=== PATIENT | female | born 1980 | race Caucasian/White ===

== ENCOUNTER 2020-01-21 10:33 | Observation (INO) | payer OTHER ==
[2020-01-17 14:40] LABS: BASOPHILS % 0.6 % (0.0-1.0); EOSINOPHILS % 0.2 % (0.0-6.0); HEMATOCRIT 34.7 % (34.2-44.1); HEMOGLOBIN 11.3 g/dL (12.0-16.0); LYMPHOCYTES # (AUTO) 1.7 (1.0-3.2); LYMPHOCYTES % 32.5 % (18.0-39.1); MEAN CORPUSCULAR HEMOGLOBIN 28.3 pg (28-32); MEAN CORPUSCULAR HGB CONC 32.6 g/dL (31-35); MONOCYTES # (AUTO) 0.4 (0.2-0.8); MONOCYTES % 8.5 % (4.4-11.3); PLATELET COUNT 157 x10e3/uL (140-360); RED BLOOD COUNT 3.99 x10e6/uL (3.6-5.1); RED CELL DISTRIBUTION WIDTH 12.9 % (11.7-14.4)
[2020-01-17 14:58] LABS: ANION GAP 15.7 mmol/L (8-16); BLOOD UREA NITROGEN 7 mg/dL (7-26); BUN/CREATININE RATIO 8 (6-25); CALCIUM 8.9 mg/dL (8.4-10.2); CARBON DIOXIDE 22 mmol/L (22-29); CHLORIDE 106 mmol/L (98-107); CREATININE, SERUM 0.86 mg/dL (0.57-1.11); EST GLOMERULAR FILTRATION RATE > 60 ML/MIN (60-); GLUCOSE 79 mg/dL (74-118); POTASSIUM 3.7 mmol/L (3.5-5.1); SODIUM 140 mmol/L (136-145)
[~2020-01-21 10:33] MED LIST: FAMOTIDINE20 MG PO; FLONASE SENSIM5.9 ML; LORATADINE10 MG PO; OLANZAPINE5 MG PO; OXYBUTYNIN CHLOR5 MG PO; VITAMIN C500 M4 PO; VITAMIN D250 MCG PO
[2020-01-21] MEDS ORDERED: CEFAZOLIN SOD 1 GM/NS 50ML 100 ML IV ONE (12:22)
[2020-01-21] MEDS ORDERED: MIDAZOLAM HCL 2 MG/2 ML VIAL ONE (13:16)
[2020-01-21] MEDS ORDERED: FENTANYL CITRATE/PF 100MCG/2 ML INJ ONE ×2 (13:17→15:41)
[2020-01-21] MEDS ORDERED: SEVOFLURANE INHAL SOLN 250 ML PEN BTL ONE (14:43)
[2020-01-21] MEDS ORDERED: ROCURONIUM BROMIDE 10 MG/ML 5ML VIAL IV ONE (14:43)
[2020-01-21] MEDS ORDERED: ONDANSETRON HCL INJ 2MG/ML 2ML 2 MG/ML VIAL ONE (14:43)
[2020-01-21] MEDS ORDERED: LIDOCAINE HCL 2% LOCAL INJ 5 ML SDV VIAL INJ ONE (14:43)
[2020-01-21] MEDS ORDERED: PROPOFOL IV EMULSION 10 MG/ML 20 ML VIAL ONE (14:43)
[2020-01-21] MEDS ORDERED: ONDANSETRON HCL INJ 2MG/ML 2ML 2 MG/ML VIAL IV PRN (15:30)
[2020-01-21] MEDS ORDERED: MORPHINE SULFATE INJ 4 MG/ML INJ 1ML IV PRN (15:30)
--- OUTSIDE RECORDS SUMMARY | 2020-01-21 16:05 | XMS REPORT | Continuity of Care Document ---
Author Author [facility] t Organization [facility] Address [address] [place] [address] Phone Unavailable Care Team Providers Care Industrial Maintenance Repairer Helper Name Role Phone DANISHA DOTSON PCP Unavailable SYSTEM, NOT IN PROVIDER Attphys Unavailable Verena MCGREGOR Attphys Unavailable Verena MCGREGOR Admphys Unavailable Payers Payer Name Policy Type Policy Number Effective Date Expiration Date S ource Problems This patient has no known problems. Allergies, Adverse Reactions, Alerts Allergy Name Allergy Type Status Severity Reaction(s) Onset Date Inacti ve Date Treating Clinician Comments Source No Known Allergies DA Active U 2017-06-14 00:00:00 [facility] Medications This patient has no known medications. Procedures This patient has no known procedures. Encounters Start Date/Time End Date/Time Encounter Type [facility] Encounter ID Source 2020-01-04 08:15:47 Outpatient SYSTEM, PROVIDER GULSHAN GAFFNEY [id number] [facility] Results Test Description Test Time Test Comments Results Result Comments Source COMPREHENSIVE METABOLIC PANEL 2019-07-06 05:38:00 Test Item SODIUM (test code = NA) 138 MMOL/L 137-145 N POTASSIUM (test code = K) 3.8 MMOL/L 3.5-5.1 N CHLORIDE (test code = CL) 105 MMOL/L 98-107 N CARBON DIOXIDE (test code = CO2) 26 MMOL/L 22-30 N GLUCOSE (test code = GLU) 98 MG/DL 74-106 N BLOOD UREA NITROGEN (test code = BUN) 11 MG/DL 7-17 N GLOMERULAR FILTRATION RATE (test code = GFR) > 60 Reporting units: ml/min/1.73 m2 (Modified MDRD Formula)Reference Range: > or = 60 ml/min/1.73 m2 CREATININE (test code = CREAT) 0.90 MG/DL 0.52-1.04 N TOTAL PROTEIN (test code = PROT) 7.0 G/DL 6.3-8.2 N ALBUMIN (test code = ALB) 3.7 G/DL 3.5-5.0 N CALCIUM (test code = CA) 8.9 MG/DL 8.4-10.2 N BILIRUBIN TOTAL (test code = BILT) 0.4 MG/DL 0.2-1.3 N SGOT/AST (test code = AST) 29 UNITS/L 14-36 N SGPT/ALT (test code = ALT) 22 UNITS/L <35 ALKALINE PHOSPHATASE (test code = ALKP) 71 UNITS/L 38-126 N [id number] 05:38:00* Test Item Value Reference Range Interpretation Comments LIPASE (test code = LIP) 46 UNITS/L 23-300 N CPK-MB [id number] 05:38:00* Test Item Value Reference Range Interpretation Comments CREATINE KINASE (CK) (test code = CK) 122 UNITS/L 30-135 N CKMB (test code = CKMBT) 1.57 NG/ML 0.0-5.6 N CKMB INDEX (test code = CKMBI) 1.3 % 4.0-4.4 L [id number] 05:38:00* Test Item Value Reference Range Interpretation Comments TROPONIN-I (test code = TROPI) < 0.012 NG/ML 0.012-0.033 L COMPREHENSIVE METABOLIC [id number] 05:35:00* Test Item Value Reference Range Interpretation Comments SODIUM (test code = NA) 138 MMOL/L 137-145 N POTASSIUM (test code = K) 3.8 MMOL/L 3.5-5.1 N CHLORIDE (test code = CL) 105 MMOL/L 98-107 N CARBON DIOXIDE (test code = CO2) 26 MMOL/L 22-30 N GLUCOSE (test code = GLU) 98 MG/DL 74-106 N BLOOD UREA NITROGEN (test code = BUN) 11 MG/DL 7-17 N GLOMERULAR FILTRATION RATE (test code = GFR) > 60 Reporting units: ml/min/1.73 m2 (Modified MDRD Formula)Reference Range: > or = 60 ml/min/1.73 m2 CREATININE (test code = CREAT) 0.90 MG/DL 0.52-1.04 N TOTAL PROTEIN (test code = PROT) 7.0 G/DL 6.3-8.2 N ALBUMIN (test code = ALB) 3.7 G/DL 3.5-5.0 N CALCIUM (test code = CA) 8.9 MG/DL 8.4-10.2 N BILIRUBIN TOTAL (test code = BILT) 0.4 MG/DL 0.2-1.3 N SGOT/AST (test code = AST) 29 UNITS/L 14-36 N SGPT/ALT (test code = ALT) 22 UNITS/L <35 ALKALINE PHOSPHATASE (test code = ALKP) 71 UNITS/L 38-126 N [id number] 05:35:00* Test Item Value Reference Range Interpretation Comments LIPASE (test code = LIP) 46 UNITS/L 23-300 N CPK-MB [id number] 05:35:00* Test Item Value Reference Range Interpretation Comments CREATINE KINASE (CK) (test code = CK) 122 UNITS/L 30-135 N CKMB (test code = CKMBT) 1.57 NG/ML 0.0-5.6 N CKMB INDEX (test code = CKMBI) 1.3 % 4.0-4.4 L [id number] 05:35:00* Test Item Value Reference Range Interpretation Comments TROPONIN-I (test code = TROPI) NG/ML 0.0-0.045 HCG SERUM [id number] 05:33:00* Test Item Value Reference Range Interpretation Comments HCG SERUM QUAL (test code = HCGQL) NEGATIVE NEGATIVE A - XR NECK SOFT [id number] 05:31:00 Patient Name: ERICKA OROZCO Unit No: [id number] EXAMS: CPT CODE: [id number] XR NECK SOFT TISSUE [id number] Exam: Soft tissue neck 2 views Location: H 12 History: Cough, SOB, feels like something is stuck The epiglottis and aryepiglottic folds are normal. The prevertebral space and hypopharynx are normal. The soft tissues are unremarkable. IMPRESSION: Unremarkable exam. at 0531 Reported and signed by: Fred Goel M.D. CC: Reina Quiroz MD Technologist: Aisha Poon RT(R) Transcrpt Date/Tm/Trnsp: 07/06/2019 (530) [facility] Orig Print D/T: S: 07/06/2019 (0534) [facility] NAME: ERICKA OROZCO [place] PHYS: [place] [address] : 1980 AGE: 39 SEX: F LOC: [facility] PHONE #: [phone] EXAM DATE: 07/06/2019 STATUS: REG ER FAX #: [phone] RADIOLOGY NO: PAGE 1 Signed Report - XR CHEST [id number] 05:30:00 Patient Name: ERICKA OROZCO Unit No: [id number] EXAMS: CPT CODE: [id number] XR CHEST 1V 10716 Exam: AP chest Location: H 12 History: Cough, SOB Comparison: 06/14/2019. Findings: The lungs are clear. No infiltrate or effusion is seen. The pulmonary vasculature is normal. The heart size is normal. The mediastinal silhouette is unremarkable. The bony thorax is intact. Impression: No acute disease. at 0530 Reported and signed by: Fred Goel M.D. CC: Reina Quiroz MD Technologist: Aisha Poon RT(R) Transcrpt Date/Tm/Trnsp: 07/06/2019 (529) [facility] Orig Print D/T: S: 07/06/2019 (0548) [facility] NAME: ERICKA OROZCO [place] PHYS: [place] [address] : 1980 AGE: 39 SEX: F LOC: [facility] PHONE #: [phone] EXAM DATE: 07/06/2019 STATUS: REG ER FAX #: [phone] RADIOLOGY NO: PAGE 1 Signed Report COMPREHENSIVE METABOLIC [id number] 05:26:00* Test Item Value Reference Range Interpretation Comments SODIUM (test code = NA) 138 MMOL/L 137-145 N POTASSIUM (test code = K) 3.8 MMOL/L 3.5-5.1 N CHLORIDE (test code = CL) 105 MMOL/L 98-107 N CARBON DIOXIDE (test code = CO2) 26 MMOL/L 22-30 N GLUCOSE (test code = GLU) 98 MG/DL 74-106 N BLOOD UREA NITROGEN (test code = BUN) 11 MG/DL 7-17 N GLOMERULAR FILTRATION RATE (test code = GFR) > 60 Reporting units: ml/min/1.73 m2 (Modified MDRD Formula)Reference Range: > or = 60 ml/min/1.73 m2 CREATININE (test code = CREAT) 0.90 MG/DL 0.52-1.04 N TOTAL PROTEIN (test code = PROT) 7.0 G/DL 6.3-8.2 N ALBUMIN (test code = ALB) 3.7 G/DL 3.5-5.0 N CALCIUM (test code = CA) 8.9 MG/DL 8.4-10.2 N BILIRUBIN TOTAL (test code = BILT) 0.4 MG/DL 0.2-1.3 N SGOT/AST (test code = AST) 29 UNITS/L 14-36 N SGPT/ALT (test code = ALT) 22 UNITS/L <35 ALKALINE PHOSPHATASE (test code = ALKP) 71 UNITS/L 38-126 N [id number] 05:26:00* Test Item Value Reference Range Interpretation Comments LIPASE (test code = LIP) 46 UNITS/L 23-300 N CPK-MB [id number] 05:26:00* Test Item Value Reference Range Interpretation Comments CREATINE KINASE (CK) (test code = CK) 122 UNITS/L 30-135 N CKMB (test code = CKMBT) NG/ML 0.0-5.6 CKMB INDEX (test code = CKMBI) % 4.0-4.4 [id number] 05:26:00* Test Item Value Reference Range Interpretation Comments TROPONIN-I (test code = TROPI) NG/ML 0.0-0.045 COMPREHENSIVE METABOLIC [id number] 05:25:00* Test Item Value Reference Range Interpretation Comments SODIUM (test code = NA) 138 MMOL/L 137-145 N POTASSIUM (test code = K) 3.8 MMOL/L 3.5-5.1 N CHLORIDE (test code = CL) 105 MMOL/L 98-107 N CARBON DIOXIDE (test code = CO2) MMOL/L 22-30 GLUCOSE (test code = GLU) MG/DL 74-106 BLOOD UREA NITROGEN (test code = BUN) MG/DL 7-17 GLOMERULAR FILTRATION RATE (test code = GFR) > 60 Reporting units: ml/min/1.73 m2 (Modified MDRD Formula)Reference Range: > or = 60 ml/min/1.73 m2 CREATININE (test code = CREAT) 0.90 MG/DL 0.52-1.04 N TOTAL PROTEIN (test code = PROT) G/DL 6.3-8.2 ALBUMIN (test code = ALB) 3.7 G/DL 3.5-5.0 N CALCIUM (test code = CA) MG/DL 8.7-9.7 BILIRUBIN TOTAL (test code = BILT) MG/DL 0.2-1.3 SGOT/AST (test code = AST) UNITS/L 15-37 SGPT/ALT (test code = ALT) UNITS/L <35 ALKALINE PHOSPHATASE (test code = ALKP) UNITS/L 38-126 [id number] 05:25:00* Test Item Value Reference Range Interpretation Comments LIPASE (test code = LIP) UNITS/L 23-300 CPK-MB [id number] 05:25:00* Test Item Value Reference Range Interpretation Comments CREATINE KINASE (CK) (test code = CK) UNITS/L 30-135 CKMB (test code = CKMBT) NG/ML 0.0-5.6 CKMB INDEX (test code = CKMBI) % 4.0-4.4 [id number] 05:25:00* Test Item Value Reference Range Interpretation Comments TROPONIN-I (test code = TROPI) NG/ML 0.0-0.045 COMPREHENSIVE METABOLIC [id number] 05:23:00* Test Item Value Reference Range Interpretation Comments SODIUM (test code = NA) 138 MMOL/L 137-145 N POTASSIUM (test code = K) 3.8 MMOL/L 3.5-5.1 N CHLORIDE (test code = CL) 105 MMOL/L 98-107 N CARBON DIOXIDE (test code = CO2) MMOL/L 22-30 GLUCOSE (test code = GLU) MG/DL 74-106 BLOOD UREA NITROGEN (test code = BUN) MG/DL 7-17 GLOMERULAR FILTRATION RATE (test code = GFR) CREATININE (test code = CREAT) MG/DL 0.52-1.04 TOTAL PROTEIN (test code = PROT) G/DL 6.3-8.2 ALBUMIN (test code = ALB) 3.7 G/DL 3.5-5.0 N CALCIUM (test code = CA) MG/DL 8.7-9.7 BILIRUBIN TOTAL (test code = BILT) MG/DL 0.2-1.3 SGOT/AST (test code = AST) UNITS/L 15-37 SGPT/ALT (test code = ALT) UNITS/L <35 ALKALINE PHOSPHATASE (test code = ALKP) UNITS/L 38-126 [id number] 05:23:00* Test Item Value Reference Range Interpretation Comments LIPASE (test code = LIP) UNITS/L 23-300 CPK-MB [id number] 05:23:00* Test Item Value Reference Range Interpretation Comments CREATINE KINASE (CK) (test code = CK) UNITS/L 30-135 CKMB (test code = CKMBT) NG/ML 0.0-5.6 CKMB INDEX (test code = CKMBI) % 4.0-4.4 [id number] 05:23:00* Test Item Value Reference Range Interpretation Comments TROPONIN-I (test code = TROPI) NG/ML 0.0-0.045 CBC W/AUTO [id number] 05:13:00* Test Item Value Reference Range Interpretation Comments WHITE BLOOD CELL (test code = WBC) 8.0 K/MM3 3.8-9.8 N RED BLOOD CELL (test code = RBC) 3.94 M/MM3 3.58-4.97 N HEMOGLOBIN (test code = HGB) 11.3 G/DL 11.2-14.9 N HEMATOCRIT (test code = HCT) 35.6 % 33.2-43.5 N MEAN CELL VOLUME (test code = MCV) 90 fL 80.7-99.1 N MEAN CELL HGB (test code = MCH) 28.7 pg 27.0-34.1 N MEAN CELL HGB CONCETRATION (test code = MCHC) 31.7 % 32.2-35. 7 L RED CELL DISTRIBUTION WIDTH (test code = RDW) 13.1 % 12.1-15. 2 N PLATELET COUNT (test code = PLT) 180 K/MM3 129-368 N MEAN PLATELET VOLUME (test code = MPV) 11.2 fl 7.4-10.4 H NEUTROPHIL % (test code = NT%) 71.7 % 43-75 N IMMATURE GRANULOCYTE % (test code = IG%) 0.2 % 0.0-2.0 N LYMPHOCYTE % (test code = LY%) 17.8 % 14-44 N MONOCYTE % (test code = MO%) 9.9 % 4-13 N EOSINOPHIL % (test code = EO%) 0.0 % 0-6 N BASOPHIL % (test code = BA%) 0.4 % 0-2 N NUCLEATED RBC % (test code = NRBC%) 0.0 % 0-1.0 N NEUTROPHIL # (test code = NT#) 5.75 K/mm3 2.0-7.6 N IMMATURE GRANULOCYTE # (test code = IG#) 0.02 x10 3/uL 0-0.03 N LYMPHOCYTE # (test code = LY#) 1.43 K/mm3 1.0-3.8 N MONOCYTE # (test code = MO#) 0.79 K/mm3 0.1-0.8 N EOSINOPHIL # (test code = EO#) 0.00 K/mm3 0.0-0.2 N BASOPHIL # (test code = BA#) 0.03 K/mm3 0.0-0.2 N NUCLEATED RBC # (test code = NRBC#) 0.00 K/mm3 0.0-0.1 N Blood Type and [id number] 14:24:00* Test Item Value Reference Range Interpretation Comments ABO type (test code = ABO) A Rh Type (test code = RH) Positive Antibody Screen - [id number] 14:24:00* Test Item Value Reference Range Interpretation Comments Antibody Screen (test code = ABSCR) Negative Comprehensive Metabolic [id number] 13:43:00* Test Item Value Reference Range Interpretation Comments Sodium (test code = NA) 138 mmol/L 135-145 N Potassium (test code = K) 4.6 mmol/L 3.5-5.1 N Chloride (test code = CL) 101 mmol/L 98-105 N Carbon Dioxide (test code = CO2) 21 mmol/L 22-29 L Glucose (test code = GLU) 97 mg/dL 70-115 N Blood Urea Nitrogen (test code = BUN) 9 mg/dL 6-20 N Creatinine (test code = CREAT) 1.0 mg/dL 0.5-0.9 H Calcium (test code = CA) 9.3 mg/dL 8.3-10.5 N Prot Total (test code = TP) 7.6 g/dL 6.4-8.3 N Albumin (test code = ALB) 4.6 g/dL 3.5-5.2 N A/G Ratio (test code = AGRATIO) 1.5 Ratio Globulin (test code = GLOB) 3.0 2.9-3.1 N Bili Total (test code = TBIL) 0.4 mg/dL 0.1-0.9 N Alk Phos (test code = APHOS) 58 U/L 35-104 N AST (test code = AST) 18 U/L 1-32 N ALT (test code = ALT) 19 U/L 1-33 N BUN/Creatinine Ratio (test code = BCRATIO) 9.0 Anion Gap (test code = AGAP) 16 mmol/L 7-16 N Estimated GFR (test code = GFR) >60 mL/min/1.73m2 eGFR (estimated Glomerular Filtration Rate) is an estimated value,calculated from the patient's serum creatinine using the MDRD equation.It is NOT the patient's actual GFR. The eGFR provides a more clinicallyuseful measure of kidney disease than serum creatinine alone.This calculation takes sex and race into account, if the informationis provided. If the race is not provided, and the patient isAfrican-Saudi Arabian, multiply by 1.212. If sex is not provided, and thepatient is female, multiply by 0.742. Results for patients <18 years ofage have not been validated by the MDRD study and should be interpretedwith caution.eGFR Result Interpretation:eGFR > or = 60 is in the Normal RangeeGFR < 60 may mean kidney diseaseeGFR < 15 may mean kidney failureRanges recommended by the National Kidney Found ation,http://nkdep.nih.gov CBC with [id number] 13:37:00* Test Item Value Reference Range Interpretation Comments WBC (test code = WBC) 5.3 K/cumm 4.4-10.5 N RBC (test code = RBC) 4.52 M/cumm 3.75-5.20 N Hemoglobin (test code = HGB) 12.8 gm/dL 12.2-14.8 N Hematocrit (test code = HCT) 39.2 % 36.5-44.4 N MCV (test code = MCV) 86.7 fL 80-100 N MCH (test code = MCH) 28.4 pg 27.0-32.5 N MCHC (test code = MCHC) 32.7 g/dL 32.0-37.5 N RDW (test code = RDW) 12.8 % 11.5-14.5 N Platelet Count (test code = PLTCT) 193 K/cumm 140-440 N MPV (test code = MPV) 8.0 fL Diff Method (test code = DIFFM) Auto Neutrophil (test code = NEUT) 66.5 % 36-70 N Lymphocyte (test code = LYMPH) 28.5 % 12-44 N Monocyte (test code = MONO) 4.4 % 0-11 N Eosinophil (test code = EOS) 0.1 % 0-7 N Basophil (test code = BASO) 0.5 % 0-2 N Neutro Abs (test code = ANEUT) 3.5 K/cumm 1.6-7.4 N Lymph Abs (test code = ALYMPH) 1.5 K/cumm 0.5-4.6 N [place] Abs (test code = AMONO) 0.2 K/cumm 0.0-1.2 N Eos Abs (test code = AEOS) 0.01 K/cumm 0.00-0.74 N Baso Abs (test code = ABASO) 0.0 K/cumm 0.00-0.21 N BHCG, Serum, [id number] 13:36:00* Test Item Value Reference Range Interpretation Comments Preg Qual [Se] (test code = BSG) Negative Negative N
[2020-01-21] MEDS ORDERED: ACETAMINOPHEN 1000 MG/100 ML 100 ML IV ONE (16:13)
[2020-01-21] MEDS: SODIUM CHLORIDE 0.9% 1000ML 1,000 ML IV SCH (17:01)
[2020-01-21] MEDS: HYDROCODONE/APAP 5MG-325MG TAB PO PRN ×2 (17:09→21:20)
[2020-01-21] MEDS: OXYBUTYNIN CHLORIDE 5 MG TAB PO SCH (17:09)
[2020-01-21 17:29] VITALS: BP 136/101
--- NOTE | 2020-01-21 18:06 | Operative Report ---
DATE OF PROCEDURE: 01/21/2020 SURGEON: Jayden Jara MD PREOPERATIVE DIAGNOSIS: Right thyroid mass, carcinoma of the thyroid. POSTOPERATIVE DIAGNOSIS: Carcinoma of the thyroid. PROCEDURE: Total thyroidectomy. WIRE SAW OPERATOR: None. ANESTHESIA: General. INDICATIONS AND FINDINGS: The patient is a 39-year-old female, found of a mass in the right lobe of the thyroid. 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 At surgery, there was a large mass in the right lobe of the thyroid, which was about 3.5 cm in diameter and frozen section revealed papillary carcinoma. TECHNIQUE: After adequate general endotracheal anesthesia, the patient in supine position with the neck extended, the neck was prepped and draped in a sterile fashion with ChloraPrep solution. A transverse incision was made approximately 2 cm above the sternal notch, carried down through subcutaneous tissue and platysma. Subplatysmal flaps were raised superiorly and inferiorly. Strap muscles were divided in the midline exposing the thyroid. The right lobe of the thyroid was dissected away from the strap muscles. The right lobe was mobilized by dividing the middle thyroid vein. The inferior parathyroid gland on the right was identified and preserved. Recurrent laryngeal nerve also was identified and this was preserved. Vessels going to the thyroid were dissected free and divided between hemoclips close to the thyroid. With the parathyroid glands were preserved as was the recurrent laryngeal nerve, the superior pole vessels were dissected free and divided between hemoclips all vessels being doubly clipped. The remaining vessels going into the right lobe were dissected free until the right lobe was completely free. It was then dissected off the trachea with vessel coming from the trachea into the thyroid divided between hemoclips and the right lobe with the isthmus was removed and divided, flushed with the left lobe and divided thyroid, suture ligated with 2-0 Vicryl. The right lobe was submitted for frozen section, which revealed papillary carcinoma of the thyroid. The left lobe was then removed. The left lobe was mobilized, divided middle thyroid vein. Recurrent laryngeal nerve was identified and preserved. Vessels going to the thyroid were dissected free and divided between hemoclips close to the thyroid. Both inferior and superior parathyroid glands were identified and preserved as the vessels were dissected free, the same close to the thyroid. Superior pole vessels were dissected free and divided between hemoclips. Once the thyroid gland was completely free, it was removed, dissected away from the trachea about 1 vessel from the trachea being divided between hemoclips and the left lobe of the thyroid was removed completely. Hemostasis was seen to be adequate. The wound was irrigated with saline, inspected for hemostasis, which was seen to be adequate. A 10 mm flat Darion-Johnson drain was placed in the wound through a separate stab wound incision. The strap muscle was then reapproximated in the midline using 2-0 Vicryl. The platysma was closed using running suture of 3-0 Vicryl. Skin was closed with running subcuticular suture of 4-0 Vicryl. Steri-Strips and a sterile dressing were applied. The patient tolerated the procedure well. Estimated blood loss was 20 mL. There were no complications. All counts were correct. The patient was taken to the recovery room in satisfactory condition. Jayden Jara MD DWG/MODL /[id number] cc: MD Flor Tovar MD
[2020-01-21 18:09] VITALS: BP 136/101
[2020-01-21 18:21] VITALS: BP 136/101
[2020-01-21 19:44] VITALS: BP 135/87
--- NOTE | 2020-01-21 20:20 | NUR ---
Mother called requesting if MD could start patient on sleep medication. MD notified. Received new order for PRN sleeping medications.
[2020-01-21 21:00] VITALS: BP 135/87
[2020-01-21] MEDS ORDERED: OLANZAPINE 5 MG TAB PO SCH (21:00)
[2020-01-21] MEDS ORDERED: MELATONIN 5 MG TABLET PO PRN (23:15)
[2020-01-22 00:12] VITALS: BP 128/78
[2020-01-22] MEDS: SODIUM CHLORIDE 0.9% 1000ML 1,000 ML IV SCH ×2 (01:30→13:17)
[2020-01-22 04:00] VITALS: BP 122/76
[2020-01-22 05:32] LABS: ANION GAP 11.6 mmol/L (8-16); BLOOD UREA NITROGEN 6 mg/dL (7-26); BUN/CREATININE RATIO 8 (6-25); CARBON DIOXIDE 22 mmol/L (22-29); CHLORIDE 110 mmol/L (98-107); CREATININE, SERUM 0.78 mg/dL (0.57-1.11); EST GLOMERULAR FILTRATION RATE > 60 ML/MIN (60-); GLUCOSE 87 mg/dL (74-118); POTASSIUM 3.6 mmol/L (3.5-5.1); SODIUM 140 mmol/L (136-145)
[2020-01-22] MEDS: HYDROCODONE/APAP 5MG-325MG TAB PO PRN ×3 (05:43→16:54)
[2020-01-22 08:00] VITALS: BP 142/95
[2020-01-22 08:23] VITALS: BP 142/95
[2020-01-22] MEDS ORDERED: FLUTICASONE FUROATE NS SCH (09:00)
[2020-01-22] MEDS ORDERED: LORATADINE 10 MG TAB PO SCH (09:00)
[2020-01-22] MEDS ORDERED: FAMOTIDINE 20 MG TAB PO SCH (09:00)
[2020-01-22] MEDS: OXYBUTYNIN CHLORIDE 5 MG TAB PO SCH ×2 (09:17→16:53)
[2020-01-22 12:36] LABS: CALCIUM 8.4 mg/dL (8.4-10.2)
[2020-01-22 12:49] LABS: CALCIUM IONIZED 1.1 mmol/L (1.09-1.30)
[2020-01-22 14:05] VITALS: BP 134/91
[2020-01-22 17:23] VITALS: BP 131/96
[2020-01-24] MEDS ORDERED: ERGOCALCIFEROL 50,000 UNIT CAP PO SCH (09:00)
== END 2020-01-22 20:15 | disposition home or self-care (01) ==
LOC: OR 10:33 → PACU V 15:35 → MED/SURG 16:40
PROVIDERS: ADMIT Surgery; ATTEND Surgery
DX: C73 Malignant neoplasm of thyroid gland (principal); F41.9 Anxiety disorder, unspecified; K21.9 Gastro-esophageal reflux disease without esophagitis
CPT/HCPCS: 36415 ×2; 60270; 80048 ×2; 82310; 84702; 85025; 88172; 88173; 88305; 88307; 88331; G0378 ×2; J0131; J0690; J2001; J2250; J2405; J2704; J3010; J7030 ×2; U0002